=== PATIENT | female | born 1965 | race Caucasian/White ===

== ENCOUNTER 2017-06-05 00:21 | Emergency (ER) | payer MEDICAID ==
[~2017-06-05] VITALS: Ht 160 cm; Wt 64.0 kg
[2017-06-05] MEDS ORDERED: CONCOR PO (00:37)
[2017-06-05 01:15] LABS: BASOPHILS # (AUTO) 0.05 K/uL (0.00-0.20); BASOPHILS % (AUTO) 0.3 % (0.0-2.0); EOSINOPHILS # (AUTO) 0.08 K/uL (0.00-0.70); EOSINOPHILS % (AUTO) 0.54 % (1.0-6.0); HEMATOCRIT 38.8 % (36-46); HEMOGLOBIN 13.2 g/dL (12.0-16.0); LYMPHOCYTES # (AUTO) 1.8 K/uL (1.0-4.8); LYMPHOCYTES % (AUTO) 12.1 % (22.0-44.0); MEAN CORPUSCULAR HEMOGLOBIN 32.1 pg (26.0-34.0); MEAN CORPUSCULAR HGB CONC 33.9 G/dL (31.0-37.0); MEAN CORPUSCULAR VOLUME 95 fL (80-100); MONOCYTES # (AUTO) 0.6 K/uL (0.1-1.0); NEUTROPHILS # (AUTO) 12.3 K/uL (1.8-7.7); NEUTROPHILS % (AUTO) 83.1 % (40.0-70.0); PLATELET COUNT (AUTO) 169 K/uL (150-450); RED CELL DISTRIBUTION WIDTH 12.6 % (11.5-14.5); WHITE BLOOD COUNT (AUTO) 14.8 K/uL (4.5-11.0)
[2017-06-05 01:24] LABS: ANION GAP 9 mmol/L (8-16); CALCIUM, TOTAL 8.7 mg/dL (8.8-10.5); CARBON DIOXIDE 29 mmol/L (22-29); CHLORIDE 104 mmol/L (98-107); CREATININE 0.66 mg/dL (0.60-1.30); GLOMERULAR FILTR. RATE CALC > 60 mL/min (>60); POTASSIUM 4.1 mmol/L (3.5-5.1); SODIUM SERUM 142 mmol/L (136-145); UREA NITROGEN, BLOOD 16 mg/dL (7-18)
[2017-06-05 01:31] LABS: ALANINE AMINOTRANSFERASE 220 U/L (12-78); ALBUMIN 3.7 g/dL (3.4-5.0); ASPARTATE AMINOTRANSFERASE 374 U/L (15-37); BILIRUBIN,TOTAL 0.4 mg/dL (0.1-1.0); TOTAL PROTEIN, SERUM 7.3 g/dL (6.4-8.2)
[2017-06-05] MEDS ORDERED: DONNATAL/LIDOCAINE/MAALOX 55 ML BOTTLE PO ONE (03:00)
[2017-06-05] MEDS ORDERED: PANTOPRAZOLE SODIUM 40 MG/VIAL IVP ONE (03:00)
[2017-06-05] MEDS ORDERED: METOCLOPRAMIDE HCL 5 MG/ML 2 ML VIAL IVP ONE (03:00)
[2017-06-05 03:10] LABS: APPEARANCE,URINE CLOUDY (CLEAR); GLUCOSE, URINE (UA) NEGATIVE (NEGATIVE); KETONES,URINE NEGATIVE (NEGATIVE); LEUKOCYTE ESTERASE ,URINE NEGATIVE (NEGATIVE); OCCULT BLOOD,URINE NEGATIVE (NEGATIVE); PH,URINE 7.5 (5.0-8.0); PROTEIN,URINE NEGATIVE (NEGATIVE)
[2017-06-05 03:32] LABS: ADD UA MICROSCOPIC NO
[2017-06-05] MEDS ORDERED: MORPHINE SULFATE 2 MG/ML SYRINGE IVP ONE (04:15)
[2017-06-05] MEDS ORDERED: DiphenhydrAMINE HCL 50 MG/ML VIAL IVP ONE (04:15)
[2017-06-05 04:45] VITALS: BP 123/81
== END 2017-06-05 04:53 | disposition home or self-care (01) ==
LOC: EMS 00:23
DX: K29.70 Gastritis, unspecified, without bleeding (principal); I10 Essential (primary) hypertension; Z87.891 Personal history of nicotine dependence
CPT/HCPCS: 36415; 80053; 81003; 83690; 84703; 85025; 96374; 96375; 99284; C9113; J1200; J2270; J2765; Z7610